=== PATIENT | female | born 2005 | race Two or more races ===

== ENCOUNTER 2025-06-19 18:54 | Emergency (ER) | payer MEDICAID, SELFPAY ==
[2025-06-19 19:05] VITALS: BP 118/90; PULSE 108; RESP 18; TEMP 37.1; O2SAT 99; BMI 34.4
--- NOTE | 2025-06-19 19:21 | XR_ITS ---
EXAMINATION: PA lateral chest 2 views TECHNIQUE: Upright PA lateral chest 2 views Date and time: June 19, 2025, 1912 hours INDICATIONS: Right-sided chest pain difficulty breathing 3 days. FINDINGS: No significant cardiac enlargement Mild vascular congestion. No lobar pneumonia or pulmonary edema IMPRESSION: Mild vascular congestion
--- NOTE | 2025-06-19 19:22 | EDNOTE_ITS ---
ED Chest Pain RME/HPI General Chief Complaint: Back Pain/Injury Stated Complaint: RIGHT FLANK PAIN Time Seen by Provider: 06/19/25 19:21 Arrival date/time: 06/19/25 18:54 19F with no significant PMH presents to ED with several days of intermittent R- sided chest/flank pain when she takes a deep breath, as well as a bad cough. Patient denies dysuria/hematuria. Limitations: no limitations Related Data Previous Rx's ?Medication ?Instructions ?Recorded ibuprofen 600 mg tablet 1 tab PO Q8HR PRN pain #30 t abs 06/12/16 Allergies Allergy/AdvReac Type Severity Reaction Status Date / Time No Known Allergies Allergy Unknown Uncoded 06/19/25 18:55 Review of Systems Review of Systems Systems Reviewed: All systems reviewed, normal except as documented Cardiovascular Cardiovascular: Reports as per HPI and Reports chest pain (R rib/flank) Respiratory Respiratory: Reports as per HPI and Reports cough Past Medical History Social History SMOKING STATUS: Never smoker ED Exam General Limitations: Present no limitations General appearance: Present alert and in no apparent distress Head Head exam: Present atraumatic ENT ENT exam: Present normal exam, normal oropharynx and mucous membranes moist Neck Neck exam: Present normal inspection, full ROM and trachea midline Chest Chest inspection: Present normal inspection and symmetric chest wall rise Respiratory Respiratory exam: Present normal lung sounds bilaterally Neurological Exam Neurological exam: Present alert and oriented X3 Psychiatric Psychiatric exam: Present normal affect and normal mood Skin Skin exam: Present warm, dry, intact and normal color Course Quality Measures none Orders Category Date Time Status XR chest 2V Stat Exams 06/19/25 19:21 Completed CBC Stat Lab 06/19/25 21:40 Completed CMP [Comprehensive Metabolic Panel] Stat Lab 06/19/25 21:40 Completed D-Dimer Stat Lab 06/19/25 21:40 Completed Troponin I Stat Lab 06/19/25 21:40 Completed Vital Signs Vital signs: Vital Signs Temperature 98.7 F 06/19/25 19:05 Pulse Rate 108 H 06/19/25 19:05 Respiratory Rate 18 06/19/25 19:05 Blood Pressure 118/90 H 06/19/25 19:05 Pulse Oximetry (%) 99 06/19/25 19:05 Oxygen Delivery Method Room Air 06/19/25 19:05 O2 at 99% on RA and WNLs Chest Pain MDM Narrative MDM Narrative:: 19F with no significant PMH presents to ED with several days of intermittent R- sided chest/flank pain when she takes a deep breath, as well as a bad cough. Patient denies dysuria/hematuria. Physical exam reveals clear lungs. No flank/rib/chest tenderness. Clear oropharynx. Patient is afebrile, calm, and alert. XR unremarkable. Mild leukocytosis. CMP unremarkable. Trop and D-dimer WNLs. Patient data External records reviewed:: [facility] previous records Clinical information provided by:: patient Social determinants that could affect healthcare access:: none Patient has the following chronic illnesses:: none How is presenting disease/condition affected by chronic disease/condition?: no chronic disease Evaluation data The following diagnostics were reviewed and interpreted by me:: radiology exam(s) Lab and/or radiology exams considered but not ordered:: ordered Interpretation Summary: above Medications / Prescriptions Medications or Prescriptions considered but not ordered:: not ordered Medication administrations:: n/a Consultations Consultation(s) initiated? (list below): No Diagnosis Chest Pain Differential Diagnosis: fracture of rib, pneumothorax, stable angina, unstable angina pectoris, atypical chest pain, st elevation myocardial infarction, costochondritis, chest pain, biliary colic and other (CAP, URI, URI and pleurisy) Most likely diagnosis given after review of the tests above:: URI and pleurisy Admission Indicated Admission indicated?: not indicated Admission Request Was there a request for admission?: No Disposition Plan Disposition Plan: Discharge Discharge Attestation Discharge Attestation: The patient and all family members were given an opportunity to ask questions and understood the discharge instructions. Discharge instructions specifically effects, indications for sooner follow up or return to the emergency department, and the expected course of current diagnosis. Patient condition: Stable Discharge Plan Plan Patient Disposition: HOME (Self Care) Discharge Disposition comment: Stable Prescriptions/Referrals Prescriptions/Med Rec: No Action ibuprofen 600 MG tablet 1 tab PO Q8HR PRN (Reason: pain) Qty: 30 0RF Referrals: Lorraine Baum NP [Primary Care Provider] - In 1 week Problem List Clinical Impression: URI (upper respiratory infection), Pleurisy Patient/Caregiver Discharge Instructions Education Materials: ED Pleurisy, ED URI, Viral, No Abx (Adult) Additional Instructions: Please follow-up with PCP within 24-48 hours and return immediately if symptoms worsen. Ibuprofen/Tylenol can be used simultaneously for greater fever/pain control. Benadryl is good for cough, congestion, and sleep. Print Language: [place] Stand Alone Forms: Patient Portal Info Letter PA/PRINTING BINDERY ASSISTANT Supervising Physician PA/PRINTING BINDERY ASSISTANT Supervising Physician: Dr. Beebe
[2025-06-19 21:48] LABS: Basophils # (Auto) 0.1 Thou/mm3 (0.0-0.2); Basophils % (Auto) 0 % (0-2.5); Eosinophils # (Auto) 0.4 Thou/mm3 (0.0-0.5); Eosinophils % (Auto) 3 % (0-10); Hematocrit 35.2 % (36.0-46.0); Hemoglobin 11.8 g/dL (12.0-16.0); Immature Granulocytes Auto 0.04 Thou/mm3 (0.00-0.00); Lymphocytes # (Auto) 4.7 Thou/mm3 (1.0-4.8); Lymphocytes % (Auto) 33 % (10-50); Mean Corpuscular HGB Conc 33.5 g/dl (31.0-37.0); Mean Corpuscular Hemoglobin 27.5 pg (25.0-35.0); Mean Corpuscular Volume 82 fL (80-100); Monocytes # (Auto) 0.8 Thou/mm3 (0.0-0.8); Monocytes % (Auto) 6 % (0-12); Neutrophils # (Auto) 8.4 Thou/mm3 (1.8-7.7); Neutrophils % (Auto) 58 % (37-80); Nucleated Red Blood Cell # 0.00 Thou/mm3 (0.00-0.00); Nucleated Red Blood Cell % 0 /100 WBC (0); Platelet Count 305 Thou/mm3 (140-440); RDW Standard Deviation 38.7 fL (36.4-46.3); Red Blood Count 4.29 Miln/mm3 (4.00-5.20); White Blood Count 14.4 Thou/mm3 (3.6-11.0)
[2025-06-19 22:04] LABS: D-Dimer < 250 ng/mL (<600)
[2025-06-19 22:24] LABS: Alanine Aminotransferase 61 U/L (10-49); Albumin, Serum 4.7 gm/dL (3.5-5.0); Albumin/Globulin Ratio 1.6 (1.2-2.2); Alkaline Phosphatase 50 U/L (46-116); Anion Gap 8 (7-16); Aspartate Amino Transferase 34 U/L (0-34); BUN/Creatinine Ratio 10 Ratio (12-20); Bilirubin,Total 0.2 mg/dL (0.3-1.2); Blood Urea Nitrogen 8 mg/dL (9-23); Calcium 9.2 mg/dL (8.3-10.6); Calcium (Corrected) 9.2 mg/dL (8.5-10.1); Carbon Dioxide 27.6 mMol/L (20.0-31.0); Chloride 105 mMol/L (98-107); Creatinine (Component) 0.8 mg/dL (0.6-1.3); Estimated Creatinine Clearance 108.4 mL/min (>60); Globulin 2.9 gm/dL (2.3-3.5); Glucose 132 mg/dL (74-106); Osmolality,Calculated 281 (275-295); Potassium 4.1 mMol/L (3.4-5.1); Sodium 141 mMol/L (136-145); Total Protein 7.6 gm/dL (5.7-8.2); Troponin I < 0.002 ng/mL (0.0-0.045); eGFR > 60 See Note
[2025-06-19 22:34] VITALS: RESP 18
== END 2025-06-19 22:35 | disposition home or self-care (01) ==
PROVIDERS: Physician Assistant; Emergency Provider Emergency Medicine; PCP Nurse Practitioner Family
DX: J06.9 Acute upper respiratory infection, unspecified (principal); R09.1 Pleurisy
CPT/HCPCS: 36415; 71046; 80053; 84484; 85025; 85379; 99283